=== PATIENT | female | born 1965 | race Caucasian/White ===

== ENCOUNTER 2017-07-16 05:57 | Emergency (ER) | payer SELFPAY ==
[2017-07-16 07:48] LABS: CALCIUM 9.3 mg/dL (8.5-10.1); CARBON DIOXIDE 27.7 mmol/L (21-32); CHLORIDE SERUM 99 mmol/L (98-107); CREATININE SERUM 0.6 mg/dL (0.6-1.0); GFR1 > 60 mL/min; GLUCOSE SERUM 301 mg/dL (74-106); POTASSIUM SERUM 3.6 mmol/L (3.5-5.1); SODIUM SERUM 135 mmol/L (136-145)
[2017-07-16 09:12] VITALS: BP 149/93
== END 2017-07-16 09:12 | disposition home or self-care (01) ==
LOC: ED 05:57
PROVIDERS: Emergency Medicine
PROC: 3E033NZ Introduction of Analgesics, Hypnotics, Sedatives into Peripheral Vein, Percutaneous Approach (ICD-10-PCS; principal; 2017-07-16)
DX: R73.9 Hyperglycemia, unspecified (principal)
CPT/HCPCS: 82962; J1885; J7030

== ENCOUNTER 2017-11-28 19:57 | Emergency (ER) | payer OTHER ==
[2017-11-28 20:03] VITALS: BP 162/102
== END 2017-11-28 22:10 | disposition home or self-care (01) ==
LOC: ED 19:57
DX: M70.22 Olecranon bursitis, left elbow (principal); I10 Essential (primary) hypertension; E11.9 Type 2 diabetes mellitus without complications; Y93.89 Activity, other specified
CPT/HCPCS: J1885

== ENCOUNTER 2020-08-29 19:27 | Emergency (ER) | payer OTHER ==
[~2020-08-29] VITALS: Ht 162.6 cm; Wt 79.4 kg
[2020-08-29 19:33] VITALS: Ht 162.6 cm; Wt 79.4 kg
[2020-08-29 20:32] LABS: BASOPHIL % 0.5 % (0-2); PLATELET COUNT 357 x10^3mcL (130-400); RED CELL DISTRIBUTION WIDTH 12.1 % (11.5-14.5)
[2020-08-29 21:12] LABS: CARBON DIOXIDE 25.6 mmol/L (21-32); CHLORIDE SERUM 104 mmol/L (98-107); CREATININE SERUM 0.6 mg/dL (0.6-1.0); GFR1 > 60 mL/min; GLUCOSE SERUM 131 mg/dL (74-106); POTASSIUM SERUM 3.8 mmol/L (3.5-5.1); SODIUM SERUM 142 mmol/L (136-145)
[2020-08-29 21:17] LABS: ALKALINE PHOSPHATASE 76 U/L (46-116); ALT/SGPT 30 U/L (14-59); AST/SGOT 16 U/L (15-37); BILIRUBIN TOTAL 0.23 mg/dL (0.20-1.00); TOTAL PROTEIN, SERUM 7.8 g/dL (6.4-8.2)
[2020-08-29 21:44] VITALS: BP 154/88
== END 2020-08-29 21:44 | disposition home or self-care (01) ==
LOC: ED 19:27
PROVIDERS: Emergency Medicine
DX: S29.011A Strain of muscle and tendon of front wall of thorax, initial encounter (principal); M54.2 Cervicalgia; M54.5 Low back pain; I10 Essential (primary) hypertension; E11.9 Type 2 diabetes mellitus without complications; Z90.49 Acquired absence of other specified parts of digestive tract; Z90.710 Acquired absence of both cervix and uterus; V43.62XA Car passenger injured in collision with other type car in traffic accident, initial encounter; Y93.89 Activity, other specified; Y92.488 Other paved roadways as the place of occurrence of the external cause; Y99.8 Other external cause status
CPT/HCPCS: Q0092